=== PATIENT | female | born 1930 | race Caucasian/White ===

== ENCOUNTER 2017-11-15 15:29 | Inpatient (IN) | payer OTHER ==
[~2017-11-15] VITALS: Ht 162.6 cm; Wt 63.5 kg
[2017-11-15 17:05] LABS: BASOPHIL (%) 0.1 % (0-1); EOSINOPHIL (%) 0.1 % (0-5); HEMATOCRIT 35.8 % (36.0-46.0); HEMOGLOBIN 12.2 G/DL (11.9-15.5); IMMATURE GRANULOCYTE (%) 0.3 % (0.0-0.7); LYMPHOCYTE (%) 3.9 % (15-42); LYMPHOCYTE COUNT 0.3 K/uL (1.0-2.8); MCH 31.3 PG (29.0-34.0); MCHC 34.1 G/DL (30.0-36.0); MCV 91.8 FL (83-99); MONOCYTE (%) 8.1 % (3-12); MONOCYTE COUNT 0.6 K/uL (0-0.8); NEUTROPHIL (%) 87.5 % (45-76); NEUTROPHIL COUNT 6.8 K/uL (1.8-6.4); PLATELET COUNT 150 K/uL (156-360); RBC DIS.WIDTH-CV 13.4 % (11.8-14.6); RBC DIS.WIDTH-SD 45.5 % (39-53); WHITE BLOOD COUNT 7.7 K/uL (4.1-10.2)
[2017-11-15 17:17] LABS: ALBUMIN 3.8 g/dL (3.2-4.8)
[2017-11-15 17:18] LABS: CHLORIDE 102 mEq/L (99-109); SODIUM 137 mEq/L (136-147)
[2017-11-15 17:19] LABS: POTASSIUM 3.6 mEq/L (3.7-5.4)
[2017-11-15 17:20] LABS: GLUCOSE 97 mg/dL (70-99); TOTAL PROTEIN 6.2 g/dL (6.4-8.3)
[2017-11-15 17:22] LABS: TOTAL BILIRUBIN 1.8 mg/dL (0.0-1.0)
[2017-11-15 17:23] LABS: ALKALINE PHOSPHATASE 199 IU/L (3-129)
[2017-11-15 17:24] LABS: CREATININE 0.7 mg/dL (0.6-1.3); GFR ESTIMATE (CALCULATED) > 59 mL/min/
[2017-11-15 17:25] LABS: UREA NITROGEN (BUN) 16 mg/dL (9-23)
[2017-11-15 17:27] LABS: LIPASE 37 U/L (1.0-51.0)
[2017-11-15 17:32] LABS: TROP-I INTERPRETATION NEGATIVE; TROPONIN-I < 0.01 ng/mL (0.0-0.30)
[2017-11-15 17:44] LABS: ALT (GPT) 1014 IU/L (3-49)
[2017-11-15 18:10] LABS: AST (GOT) 1737 IU/L (2-34)
[2017-11-15] MEDS ORDERED: SIMVASTATIN20 MG PO (19:46)
[2017-11-15] MEDS ORDERED: SYNTHROID75 MCG PO (19:46)
[2017-11-15] MEDS ORDERED: K-DUR10 MEQ PO (19:46)
[2017-11-15] MEDS ORDERED: ALPHAGAN P100 DROP/5 BOTH EYES (19:46)
[2017-11-15] MEDS ORDERED: [UNRECOGNIZED DRUG - CODE] PO (19:51)
[2017-11-15] MEDS ORDERED: DAILY VALUE1 EACH PO (19:51)
[2017-11-15] MEDS ORDERED: PRESERVISION A1 EAC2 PO (19:51)
[2017-11-15] MEDS ORDERED: ADULT ASPIRIN R81 MG PO (19:51)
[2017-11-15] MEDS ORDERED: LATANOPROST2.5 ML BOTH EYES (19:52)
[2017-11-15] MEDS ORDERED: OMEPRAZOLE40 M1 PO (19:52)
[2017-11-15] MEDS ORDERED: BALANCE B-501 EAC1 PO (19:53)
[2017-11-16] VITALS (7 sets, daily range): BP systolic 103–160; BP diastolic 44–95
[2017-11-16 06:07] LABS: HEMATOCRIT 30.9 % (36.0-46.0); MCH 31.3 PG (29.0-34.0); MCV 94.8 FL (83-99); PLATELET COUNT 128 K/uL (156-360); RBC DIS.WIDTH-CV 13.9 % (11.8-14.6); RBC DIS.WIDTH-SD 48.6 % (39-53); RED BLOOD COUNT 3.26 M/uL (3.80-5.20); WHITE BLOOD COUNT 11.3 K/uL (4.1-10.2)
[2017-11-16 06:08] LABS: HEMOGLOBIN 10.2 G/DL (11.9-15.5)
[2017-11-17 05:49] LABS: BASOPHIL (%) 0.1 % (0-1); EOSINOPHIL (%) 4.3 % (0-5); EOSINOPHIL COUNT 0.3 K/uL (0-0.3); HEMATOCRIT 32.6 % (36.0-46.0); HEMOGLOBIN 10.5 G/DL (11.9-15.5); IMMATURE GRANULOCYTE (%) 0.3 % (0.0-0.7); LYMPHOCYTE (%) 10.8 % (15-42); LYMPHOCYTE COUNT 0.8 K/uL (1.0-2.8); MCH 31.2 PG (29.0-34.0); MCHC 32.2 G/DL (30.0-36.0); MCV 96.7 FL (83-99); MONOCYTE (%) 7.9 % (3-12); MONOCYTE COUNT 0.6 K/uL (0-0.8); NEUTROPHIL (%) 76.6 % (45-76); NEUTROPHIL COUNT 5.3 K/uL (1.8-6.4); PLATELET COUNT 114 K/uL (156-360); RED BLOOD COUNT 3.37 M/uL (3.80-5.20)
[2017-11-17 06:15] LABS: ALKALINE PHOSPHATASE 135 IU/L (3-129); ALT (GPT) 387 IU/L (3-49); AST (GOT) 244 IU/L (2-34); CHLORIDE 110 MEQ/L (99-109); CREATININE 0.7 MG/DL (0.6-1.3); GFR ESTIMATE (CALCULATED) > 59 mL/min/; GLUCOSE 86 mg/dL (70-99); POTASSIUM 3.6 MEQ/L (3.7-5.4); SODIUM 140 MEQ/L (136-147); TOTAL BILIRUBIN 3.3 MG/DL (0.0-1.0); TOTAL PROTEIN 4.7 G/DL (6.4-8.3); UREA NITROGEN (BUN) 12 mg/dL (9-23)
[2017-11-17 07:41] VITALS: BP 119/53
[2017-11-17 15:39] VITALS: BP 105/58
[2017-11-18 00:30] VITALS: BP 115/50
[2017-11-18 06:48] LABS: HEMATOCRIT 31.3 % (36.0-46.0); MCH 30.2 PG (29.0-34.0); MCHC 31.9 G/DL (30.0-36.0); MCV 94.6 FL (83-99); PLATELET COUNT 118 K/uL (156-360); RBC DIS.WIDTH-CV 13.8 % (11.8-14.6); RBC DIS.WIDTH-SD 47.9 % (39-53); RED BLOOD COUNT 3.31 M/uL (3.80-5.20); WHITE BLOOD COUNT 5.4 K/uL (4.1-10.2)
[2017-11-18 07:21] LABS: ALBUMIN 2.9 G/DL (3.2-4.8); ALKALINE PHOSPHATASE 131 IU/L (3-129); ALT (GPT) 256 IU/L (3-49); AST (GOT) 93 IU/L (2-34); CHLORIDE 111 MEQ/L (99-109); CREATININE 0.7 MG/DL (0.6-1.3); GFR ESTIMATE (CALCULATED) > 59 mL/min/; GLUCOSE 96 mg/dL (70-99); POTASSIUM 3.9 MEQ/L (3.7-5.4); SODIUM 140 MEQ/L (136-147); TOTAL BILIRUBIN 1.1 MG/DL (0.0-1.0); UREA NITROGEN (BUN) 10 mg/dL (9-23)
[2017-11-18 08:00] VITALS: BP 144/56
[2017-11-18 17:17] VITALS: BP 149/57
[2017-11-18 19:55] VITALS: BP 162/71
[2017-11-19 00:21] VITALS: BP 120/60
[2017-11-19 08:00] VITALS: BP 154/67
[2017-11-19 16:00] VITALS: BP 137/60
[2017-11-19] MEDS ORDERED: CEPHALEXIN500 MG PO (16:27)
[2017-11-19] MEDS ORDERED: PRAVASTATIN SOD40 MG PO (16:28)
== END 2017-11-19 17:35 | disposition home or self-care (01) | DRG 445 ==
LOC: EME 15:29 → 4EAST 19:47 → 4SOUTH 19:47 → EDOF 19:47 → ENRESERV 20:13 → 4EAST 11-16 04:30 → ENRESERV 11-16 10:12 → 4SOUTH 11-16 11:41
PROVIDERS: Emergency Medicine; Family Medicine; Internal Medicine Gastroenterology
PROC: 0FC98ZZ Extirpation of Matter from Common Bile Duct, Via Natural or Artificial Opening Endoscopic (ICD-10-PCS; principal; 2017-11-16)
DX: K80.31 Calculus of bile duct with cholangitis, unspecified, with obstruction (principal); E87.2 Acidosis; E03.9 Hypothyroidism, unspecified; E78.5 Hyperlipidemia, unspecified; B96.89 Other specified bacterial agents as the cause of diseases classified elsewhere; H40.9 Unspecified glaucoma; J98.11 Atelectasis; H35.30 Unspecified macular degeneration; K57.10 Diverticulosis of small intestine without perforation or abscess without bleeding; M19.90 Unspecified osteoarthritis, unspecified site; B96.20 Unspecified Escherichia coli [E. coli] as the cause of diseases classified elsewhere; E87.6 Hypokalemia; D64.9 Anemia, unspecified; D69.6 Thrombocytopenia, unspecified; Z90.710 Acquired absence of both cervix and uterus; Z90.49 Acquired absence of other specified parts of digestive tract
CPT/HCPCS: 71046; 74330; 76705; 80053; 81003; 83605; 83690; 84484; 85025; 85027; 87040; 87077; 87081; 87186; 87801; 93005; C1757; C1769; J0330; J0692; J2405; J2543; J3010; J7030; J7050